=== PATIENT | male | born 1980 | race Caucasian/White ===

== ENCOUNTER 2021-01-17 17:00 | Emergency (ER) | payer BC ==
[~2021-01-17] VITALS: Ht 172.7 cm; Wt 104.3 kg
--- NOTE | 2021-01-17 17:38 | NUR ---
PT IS IN ROOM #1A. DR CRAIG EVALUATED THE PT.
[2021-01-17] MEDS ORDERED: HYDR-3980 PO (18:28)
[2021-01-17] MEDS ORDERED: MORPHINE SULFATE 4 MG/1 ML DISP.SYRIN ONE (18:28)
[2021-01-17] MEDS ORDERED: DEXAMETHASONE SOD PHOSPHATE 10 MG INJ ONE (18:28)
[2021-01-17] MEDS ORDERED: PRED50TA PO (18:28)
[2021-01-17] MEDS ORDERED: ONDANSETRON 4 MG/2 ML VIAL ONE (18:29)
[2021-01-17] MEDS ORDERED: ONDANSETRON 4 MG/2 ML VIAL IV ONE (18:30)
[2021-01-17] MEDS ORDERED: MORPHINE SULFATE 4 MG/1 ML DISP.SYRIN IV ONE (18:30)
[2021-01-17] MEDS ORDERED: DEXAMETHASONE SOD PHOSPHATE 4 MG INJ IV ONE (18:30)
[2021-01-17 18:40] LABS: HEMATOCRIT 40.8 % (36.7-47.1); MEAN CORPUSCULAR HEMOGLOBIN 27.5 uug (23.8-33.4); MEAN CORPUSCULAR VOLUME 82.6 fL (73.0-96.2); PLATELET COUNT (AUTO) 339 K/uL (152-348)
[2021-01-17 18:43] LABS: CREATININE 0.9 mg/dL (0.6-1.3); POTASSIUM 3.7 mmol/L (3.5-5.1)
[2021-01-17] MEDS ORDERED: HYDROMORPHONE 1 MG/1 ML DISP.SYRIN IV ONE (18:45)
[2021-01-17] MEDS ORDERED: HYDROMORPHONE 1 MG/1 ML DISP.SYRIN ONE (18:57)
[2021-01-17 18:58] LABS: BILIRUBIN,DIRECT 0.1 mg/dL (0.0-0.2); BILIRUBIN,TOTAL 0.5 mg/dL (0.2-1.0); TOTAL PROTEIN, SERUM 8.1 g/dL (6.4-8.2)
--- NOTE | 2021-01-17 19:21 | NUR ---
Patient discharged to home in stable condition. Written and verbal after care instructions given. Patient verbalizes understanding of instructions. Stressed follow up or return to ER for worsening s/s. Pt out of ER via crutches, VSS, no acute signs of distress, all belongings taken, IV site discontinued, provided copies of lab and xray results, instructed not to drive, no falls noted, to be driven home by friend via private vehicle.
[2021-01-17 19:22] VITALS: BP 130/85
== END 2021-01-17 19:22 | disposition home or self-care (01) ==
LOC: ER 17:02
DX: M10.9 Gout, unspecified (principal); M77.31 Calcaneal spur, right foot; E66.9 Obesity, unspecified; Z68.35 Body mass index [BMI] 35.0-35.9, adult
CPT/HCPCS: 36415; 73620 ×2; 80048; 80076; 83605; 83880; 84484; 85025; 96374; 96375; 99284; J1100; J1170; J2270; J2405; 70030-TC; A4663

== ENCOUNTER 2024-11-10 23:58 | Emergency (ER) | payer BC ==
[~2024-11-10] VITALS: Ht 172.7 cm; Wt 106.1 kg
[~2024-11-10 23:58] MED LIST: HYDR-3980 PO; PRED50TA PO
[2024-11-11] MEDS ORDERED: predniSONE 50 MG TABLET ONE (02:48)
[2024-11-11] MEDS ORDERED: ACETAMINOPHEN 500 MG TABLET ONE (02:48)
[2024-11-11] MEDS ORDERED: IBUPROFEN 400 MG TABLET ONE (02:48)
[2024-11-11] MEDS: ACETAMINOPHEN 500 MG TABLET PO ONE (02:55)
[2024-11-11] MEDS: predniSONE 50 MG TABLET PO ONE (02:55)
[2024-11-11] MEDS: IBUPROFEN 400 MG TABLET PO ONE (02:55)
[2024-11-11 03:27] VITALS: BP 134/87; TEMP 98; O2SAT 98
== END 2024-11-11 02:58 | disposition home or self-care (01) ==
LOC: ER 11-11
DX: M10.9 Gout, unspecified (principal); F17.200 Nicotine dependence, unspecified, uncomplicated; R22.42 Localized swelling, mass and lump, left lower limb; Z79.52 Long term (current) use of systemic steroids; Z79.899 Other long term (current) drug therapy
CPT/HCPCS: A4606; A4663; A9150; J7512